=== PATIENT | female | born 1985 | race Caucasian/White ===

== ENCOUNTER 2019-04-06 20:06 | Emergency (ER) | payer MEDICARE, MEDICAID, SELFPAY ==
[2019-04-06 20:07] VITALS: BP 133/82; PULSE 119; RESP 16; TEMP 36.1; O2SAT 96; BMI 37.5
--- NOTE | 2019-04-06 20:20 | ED.VISSUMM ---
- ER Visit Summary Date of Service: 04/06/19 Chief Complaint: Dog bite History of Present Illness: The patient is a 34 F who presents with dog bite to both hands that occurred today. Patient states her pain is stabbing and throbbing. Patient admits to some tingling of her left arm. Patient denies any weakness. Patient states her last tetanus was within the last 10 years. Patient states her pain is worse with movement. Patient states her pain improves with ice. Patient states she also twisted her ankle today. Patient states she is able to walk on it. Physical Examination: Vital signs are stable. Patient is afebrile. Patient is in no acute distress. Skin is warm and dry. There is mall possible puncture wound on the palmar aspect of the right hand. There is no bleeding. There are no abrasions or puncture wounds on the left hand. Cranial nerves II through XII are intact. Strength is 5/5 bilateral knee upper and lower extremities. Musculoskeletal exam reveals tenderness over the lateral aspect of the left ankle. There is no edema or ecchymosis. There is no deformity noted. There is good range of motion. There is no laxity appreciated. Pedal pulses are equal bilaterally. Emergency Department Course and Treatment: Patient is allergic to penicillins and Augmentin. Patient was given a prescription for clindamycin. Patient was instructed to take Tylenol or ibuprofen as needed for pain. Patient was instructed to follow-up with her primary care physician in 7 to 10 days. Patient understood and was agreeable with the plan. All questions were answered. Disposition: Discharge home Impression: 1. Dog bite right hand 2. Left ankle sprain This note was generated with [employer] dictation software. It may contain incorrect words, spelling, and punctuation that were not noted in review of the chart prior to signing ED Disposition - Plan for ED Patient: Disposition: Home or Assisted Living Diagnosis: Dog bite of right hand, Left ankle sprain Instructions: Dog Bite, Sprain, Ankle, No X-Ray Prescriptions: Clindamycin HCl [Cleocin] 300 mg PO Q6H #28 cap Prescription Printed Referrals: Rush Dudley MD [Primary Care Provider] - 1-2 Weeks
--- NOTE | 2019-04-06 20:26 | ED.VISSUMM ---
- ER Visit Summary Date of Service: 04/06/19 Chief Complaint: Cough, nausea, vomiting, and diarrhea History of Present Illness: The patient is a 34 F who presents with cough, nausea, vomiting, diarrhea for the past 3 days. Patient states she is coughing up some brown sputum. Patient admits to subjective chills but denies any fevers. Patient does admit to a sore throat and rhinorrhea. Patient denies any abdominal pain. Patient states she has only had mild emesis. Patient denies any hematemesis or coffee-ground emesis. Patient denies any melena or hematochezia. Patient does admit to a headache. Patient denies any neck pain or back pain. Physical Examination: Vital signs are stable except for mild tachycardia. Patient is afebrile. Patient is in no acute distress. Oral mucosa is pink and moist. Neck is supple. Trachea is midline. There is no JVD noted. Heart was regular and tachycardic. Lungs are clear and equal bilaterally. Abdomen is soft. Bowel sounds are normal. There is no tenderness. Cranial nerves II through XII are intact. There are no focal motor or sensory deficits noted. Test Results: CBC and basic metabolic profile were obtained and were within normal limits. PA and lateral chest x-ray was obtained. There is no acute cardiopulmonary process. This was interpreted by the radiologist and myself. Emergency Department Course and Treatment: Patient was given IV fluids here. Patient was feeling better on reevaluation. Patient was instructed to follow-up with her primary care physician in 5 to 7 days. Patient and family understood and were agreeable with the plan. All questions were answered. Disposition: Discharge home Impression: Viral upper respiratory infection This note was generated with [employer] dictation software. It may contain incorrect words, spelling, and punctuation that were not noted in review of the chart prior to signing ED Disposition - Plan for ED Patient: Disposition: Home or Assisted Living Diagnosis: Viral upper respiratory infection Diagnosis: (Ruled Out): Dog bite of right hand, Left ankle sprain Instructions: URI, Viral, No Abx (Adult) Referrals: Rush Dudley MD [Primary Care Provider] - 1-2 Weeks
--- NOTE | 2019-04-06 20:49 | RAD_ITS ---
STUDY: X-RAY CHEST REASON FOR EXAM: Female, 34 years old. Nausea and cough TECHNIQUE: PA and 2 lateral views of the chest. COMPARISON: None. FINDINGS: The lungs are clear and expanded. There is no demonstrated pleural abnormality. Normal size heart. Normal mediastinum and sandar. Normal visualized pulmonary arteries. Normal visualized aortic arch and descending thoracic aorta. Normal visualized thoracic spine. Normal visualized ribs, clavicles, and shoulders. There is no demonstrated abnormality of the visualized soft tissue structures of the upper abdomen. RAD/Chest PA and Lateral IMPRESSION: Normal x-ray examination of the chest. Electronically Signed: Pedro Bejarano MD at 21:32 EDT , Service support ,
[2019-04-06] MEDS: 0.9% Normal Saline 1,000 ML 1000 ML IV (21:13)
[2019-04-06 21:23] LABS: Absolute Lymphocyte Count 2.98 X10^3/uL (0.83-4.51); Absolute Neutrophil Count 4.7 X10^3/uL (2.0-7.7); Basophil# 0.05 X10^3/uL; Basophil% 0.5 % (0-1); Eosinophil# 0.56 X10^3/uL; Eosinophils% 6.1 % (0-5); Hematocrit 41.1 % (37-47); Lymphocyte # 2.98 X10^3/ul (4.0); Lymphocyte % 32.3 % (19-41); Mean Corp Hgb Conc 31.6 g/dL (32-36); Mean Corpuscular Hgb 27.5 pg (27.0-32.0); Mean Corpuscular Volume 87.1 fL (81-99); Monocyte# 0.94 X10^3/uL; Monocyte% 10.2 % (0-10); NRBC Flagged by Analyzer 0 % (0-5); Neutrophil # 4.65 X10^3/uL (2.7-7.7); Neutrophil % 50.5 % (47-70); Platelet Count 389 K/mm3 (150-450); RBC Distribution Width CV 14.6 % (11.6-14.6); RBC Distribution Width SD 46.7 fl (35.1-43.9); Red Blood Count 4.72 M/mm3 (4.2-5.4); White Blood Count 9.2 K/mm3 (4.4-11.0)
[2019-04-06 21:35] LABS: Anion Gap 9 (5-15); BUN 15 mg/dL (7-18); BUN/Creat Ratio 20.6 RATIO (10-20); Calcium,Total 8.7 mg/dL (8.5-10.1); Chloride 100 mmol/L (98-107); Creatinine, Serum 0.73 mg/dL (0.55-1.02); EST Glomerular Filtration Rate 97 mL/min (>60); Est Glom Filt Rate - Afr Amer 117 mL/min (>60); Estimated Creatinine Clearance 96.79 ml/min; Glucose 99 mg/dL (74-106); Potassium 4.1 mmol/L (3.5-5.1); Sodium Level 140 mmol/L (136-145)
--- NOTE | 2019-04-06 22:09 | ED.RN ---
SPOKE TO GUARDIAN/AUNT CASTILLO MARINO, ANSWERED ALL QUESTIONS REGARDING ED VISIT INCLUDING TESTS, RESULTS AND TREATMENT. ALSO READ ALL OF DISCHARGE PACKET TO AUNT OVER PHONE PER REQUEST. AUNT STATES SHE DOES NOT TRUST HOME HEALTH STAFF TO FOLLOW DISCHARGE INSTRUCTIONS, NEEDS TO MAKE NOTES HERSELF SO SHE CAN CALL TO MAKE SURE INSTRUCTIONS ARE FOLLOWED. AUNT REQUESTS EMAIL OR FAX OF RECORDS. INSTRUCTED TO CONTACT MEDICAL RECORDS ON MONDAY. AUNT VOICED UNDERSTANDING.
[2019-04-06 22:13] VITALS: BP 128/78; PULSE 87; RESP 16; O2SAT 99
== END 2019-04-06 22:14 | disposition home or self-care (01) ==
PROVIDERS: Emergency Provider Emergency Medicine; Family Provider Family Medicine; PCP Family Medicine
DX: J06.9 Acute upper respiratory infection, unspecified (principal); R19.7 Diarrhea, unspecified; R11.2 Nausea with vomiting, unspecified; E66.9 Obesity, unspecified; F41.9 Anxiety disorder, unspecified; F98.8 Other specified behavioral and emotional disorders with onset usually occurring in childhood and adolescence; F32.9 Major depressive disorder, single episode, unspecified; Z79.899 Other long term (current) drug therapy; F17.200 Nicotine dependence, unspecified, uncomplicated
CPT/HCPCS: 71046; 80048; 85025; 96360; 99284; J7030; A4216

== ENCOUNTER 2019-04-13 20:29 | Emergency (ER) | payer MEDICARE, MEDICAID, SELFPAY ==
[2019-04-13 20:32] VITALS: BP 124/78; PULSE 78; RESP 16; TEMP 36.9; O2SAT 98; BMI 41.1
--- NOTE | 2019-04-13 21:05 | ED.DCSUM_ITS ---
- ER Visit Summary Date of Service: 04/13/19 Chief Complaint: Posterior rib cage pain after coughing History of Present Illness: The patient is a 34 F and depression. Said she was coughing a night around 830 had sudden onset of right posterior rib cage pain. She denies any chest pain. She denies shortness of breath. Hurts to take a deep breath on her right posterior ribs. No fall or other trauma. Recently diagnosed with bronchitis started on prednisone, inhaler and steroids by an urgent care. Physical Examination: Young female no distress. Vital signs stable afebrile. Pulse ox 90% on room air no hypoxia. HEENT exam unremarkable. Neck nontender. Lungs splinting on the right but clear to auscultation bilaterally. No rales, rhonchi or wheezing. Heart regular rhythm no murmur rate about 80. Chest wall nontender. Abdomen soft nontender obese. No peritoneal signs. Extremities moves all 4. Calves nontender without edema or cords. Neurologically she is awake and alert. Back spine is nontender right posterior lower lateral rib brazing machine tender palpation. There is no ecchymosis or bruising no subcu air crepitance. Test Results: Chest x-ray AP and lateral 2 views read by myself shows no acute abnormality read by myself. No pneumothorax. No infiltrate. No obvious rib fractures. We will go with a chest x-ray at the patient. Emergency Department Course and Treatment: Treated with p.o. Motrin and [place] x2 Treatment Plan: Repeat exam doing well at 20 1:21 PM. Ice to the area. Motrin for pain and also Tylenol. Disposition: Discharge Impression: Right posterior rib cage strain post coughing History of bronchitis This note was generated with [employer] dictation software. It may contain incorrect words, spelling, and punctuation that were not noted in review of the chart prior to signing ED Disposition - Plan for ED Patient: Referrals: Antony Phillips MD [Primary Care Provider] -
--- NOTE | 2019-04-13 21:08 | RAD_ITS ---
STUDY: X-RAY CHEST REASON FOR EXAM: Female, 34 years old. While coughing felt a pop in right ribs. TECHNIQUE: PA and lateral views of the chest. COMPARISON: April 06, 2019 FINDINGS: There are low lung volumes. Normal size heart. Normal mediastinum and sandra. Normal visualized pulmonary arteries. Normal visualized aortic arch and descending thoracic aorta. Normal visualized thoracic spine. There is a right eighth posterior rib fracture. There is no demonstrated abnormality of the visualized soft tissue structures of the upper abdomen. RAD/Chest PA and Lateral IMPRESSION: Right eighth posterior rib fracture. Electronically Signed: Pattie Cifuentes MD at 21:47 EDT Tel , Service support ,
[2019-04-13] MEDS: HYDROcodone Bitartrate/Apap 5/325 Tablet PO (21:21)
[2019-04-13] MEDS: Ibuprofen 600 MG Tablet PO (21:21)
--- NOTE | 2019-04-13 21:22 | ED.DEP ---
ED Disposition - Plan for ED Patient: Disposition: Home or Assisted Living Referrals: Antony Phillips MD [Primary Care Provider] - 1 Week if not improving Additional Instructions: Ice to the area. Tylenol and Motrin for pain. Use a pillow to brace the area. On your x-ray there was no collapsed lung. No obvious rib fracture. Most likely strain the muscles on your back and rib cage. This should progressively get better.
== END 2019-04-13 21:52 | disposition home or self-care (01) ==
LOC: ED 21:45
PROVIDERS: Emergency Provider Emergency Medicine; Family Provider Family Medicine; PCP Family Medicine
DX: S29.011A Strain of muscle and tendon of front wall of thorax, initial encounter (principal); X58.XXXA Exposure to other specified factors, initial encounter; Y93.9 Activity, unspecified; Y92.9 Unspecified place or not applicable; F32.9 Major depressive disorder, single episode, unspecified; J40 Bronchitis, not specified as acute or chronic; Z79.899 Other long term (current) drug therapy; Z72.0 Tobacco use
CPT/HCPCS: 71046; 99285

== ENCOUNTER 2019-08-14 10:01 | Observation (INO) | payer MEDICARE, MEDICAID, SELFPAY ==
[2019-08-14 10:03] VITALS: BP 155/73; PULSE 109; RESP 18; TEMP 36.9; O2SAT 95; BMI 38.2
[2019-08-14 10:26] VITALS: RESP 16
--- NOTE | 2019-08-14 10:38 | RAD_ITS ---
STUDY: X-RAY CHEST REASON FOR EXAM: Female, 34 years old. Left abdomen/rib pain radiating to left shoulder and chest TECHNIQUE: PA and lateral views of the chest. COMPARISON: Comparison is made with prior study April 05, 2019. FINDINGS: There now is evidence of a small right pleural effusion with right basilar infiltrate. Follow-up is recommended. There is no demonstrated pleural abnormality. Normal size heart. Normal mediastinum and sandra. Normal visualized pulmonary arteries. Normal visualized aortic arch and descending thoracic aorta. There are degenerative changes of the visualized thoracic spine. Normal visualized ribs, clavicles, and shoulders. There is no demonstrated abnormality of the visualized soft tissue structures of the upper abdomen. RAD/Chest PA and Lateral IMPRESSION: New right basilar infiltrate with small right pleural effusion. Electronically Signed: Bowen Pettit, at 11:07 EST , Service support ,
--- NOTE | 2019-08-14 10:52 | CT_ITS ---
STUDY: CTA CHEST REASON FOR EXAM: Female, 34 years old. CHEST PAIN, PLEURAL EFFUSION, COUGH. RADIATION DOSAGE (If Supplied By Facility): CTDIvol = ( 12.61 ) mGy, DLP = ( 463.38 ) mGycm TECHNIQUE: The examination was performed with the intravenous administration of 100CC ISOVUE 370. Post-processing of the angiographic images was performed, with multiplanar reformation and 3D reconstruction. Individualized dose optimization techniques were used for this CT. COMPARISON: None. FINDINGS: Normal enhancement of the main pulmonary artery and right and left pulmonary arteries. Normal enhancement of the bilateral peripheral pulmonary arteries. There is no demonstrated pulmonary embolism. Normal thoracic aorta and visualized great vessels. There is no demonstrated aortic dissection. Normal heart and pericardium. Normal mediastinum. Normal hilar regions. Normal visualized trachea and bronchi. The lungs are well expanded. Small right pleural effusion with the bibasilar atelectasis and/or infiltrates worse on the right side. Normal chest wall structures. There are degenerative changes of thoracic spine. Normal visualized upper abdomen. CT/CTA Chest W/WO Contrast IMPRESSION: Small right pleural effusion with bibasilar atelectasis and/or infiltrates worse on the right side. There is no evidence of pulmonary embolism. Electronically Signed: Bowen Pettit, at 12:56 EST , Service support ,
[2019-08-14 11:56] LABS: Absolute Lymphocyte Count 2.84 X10^3/uL (0.83-4.51); Absolute Neutrophil Count 5.7 X10^3/uL (2.0-7.7); Anion Gap 4 (5-15); BUN 11 mg/dL (7-18); BUN/Creat Ratio 14.6 RATIO (10-20); Basophil# 0.05 X10^3/uL; Basophil% 0.5 % (0-1); Calcium,Total 9.2 mg/dL (8.5-10.1); Chloride 105 mmol/L (98-107); Creatinine, Serum 0.75 mg/dL (0.55-1.02); EST Glomerular Filtration Rate 93 mL/min (>60); Eosinophil# 0.64 X10^3/uL; Eosinophils% 6.5 % (0-5); Est Glom Filt Rate - Afr Amer 112 mL/min (>60); Estimated Creatinine Clearance 98.01 ml/min; Glucose 96 mg/dL (74-106); Hematocrit 39.2 % (37-47); Hemoglobin 11.8 g/dL (12.0-15.0); Lymphocyte # 2.84 X10^3/ul (4.0); Lymphocyte % 28.7 % (19-41); Mean Corp Hgb Conc 30.1 g/dL (32-36); Mean Corpuscular Hgb 24.9 pg (27.0-32.0); Mean Corpuscular Volume 82.9 fL (81-99); Mean Platelet Vol. 8.7 fl (6.2-12.0); Monocyte# 0.65 X10^3/uL; Monocyte% 6.6 % (0-10); NRBC Flagged by Analyzer 0 % (0-5); Neutrophil # 5.67 X10^3/uL (2.7-7.7); Neutrophil % 57.1 % (47-70); Platelet Count 487 K/mm3 (150-450); Potassium 4.1 mmol/L (3.5-5.1); RBC Distribution Width CV 14.7 % (11.6-14.6); RBC Distribution Width SD 44.1 fl (35.1-43.9); Red Blood Count 4.73 M/mm3 (4.2-5.4); Sodium Level 138 mmol/L (136-145); White Blood Count 9.9 K/mm3 (4.4-11.0)
[2019-08-14 12:11] LABS: Lactic Acid 1.9 mmol/L (0.4-1.9)
[2019-08-14 12:54] VITALS: BP 144/68; PULSE 89; RESP 16; O2SAT 97
--- NOTE | 2019-08-14 13:08 | ED.DCSUM_ITS ---
- ER Visit Summary Date of Service: 08/14/19 Chief Complaint: [Chest pain/bilateral rib pain] History of Present Illness: The patient is a 34 F [presents the emergency department with chest discomfort that started yesterday. Patient's had a cough for several weeks. She was initially treated with Zithromax about 2 weeks ago. Patient continues to cough. Patient bringing up sputum at times. Patient states the pain is mostly with coughing and breathing. She denies recent travel or surgery. She denies any falls or injuries. Patient currently in a fdc] for history of mental illness and developmental disabilities. Physical Examination: [HEENT-PERRLA, EOMI. Cranial nerves II through XII grossly intact. TMs clear. Mucous membranes moist. No adenopathy. Cardiovascular-regular rate and rhythm without murmur or ectopy Lungs-diminished breath sounds right greater than left with rales in both bases. No significant tachypnea. No accessory muscle use or retractions. Abdomen-normoactive bowel sounds, soft, nontender, no rebound or rigidity, no peritoneal signs. Extremities-intact ?4, normal range of motion, normal pulses, atraumatic] Test Results: [CBC with differential obtained showed a white count of 9.9, hemoglobin 11.8, hematocrit 39, platelets 47. Chemistries unremarkable. Lactate was 1.9. Chest x-ray initially showed right lower lobe infiltrate with effusion. CT scan of the chest with IV contrast was ordered which showed b ibasilar atelectasis versus infiltrate greater on the right with a small effusion on the right.] Emergency Department Course and Treatment: [She was started on Levaquin 750 mg IV] Treatment Plan: [Admit] Disposition: [Admit] Impression: [Bilateral pneumonia Chest pain secondary to pneumonia] This note was generated with [employer] dictation software. It may contain incorrect words, spelling, and punctuation that were not noted in review of the chart prior to signing ED Disposition - Plan for ED Patient: Referrals: Antony Phillips MD [Primary Care Provider] -
--- NOTE | 2019-08-14 13:14 | HP.PCM_ITS ---
Problem List (1) Developmental disability Status: Chronic (2) Right lower lobe pneumonia Status: Acute (3) Right small pleural effusion Status: Acute History of Present Illness Date of Admission: 08/14/19 Chief Complaint: Cough for 3 weeks The patient is a 34 year old F with history of smoking since teenage and about a pack per day, mild developmental disability, lives in assisted was brought in to ER for cough for 3 weeks which is intermittently associated with clear sputum. She came to ER for left lower chest pain which is mainly pleuritic on coughing and breathing. She denies any fever or chills. She had Zithromax given as outpatient for bronchitis. In ED heart rate 109/min, respiratory rate 18 pulse ox 95% on room air. Afebrile. Chest x-ray and then CT chest was done. Chest CT scan independently reviewed. It is suggestive of right small pleural effusion, right lower infiltrate with bibasilar atelectasis, right more than left side. I do not appreciate air bronchograms rather than atelectatic bands. Past Medical History Past Medical History (Chronic Problems): Chronic Problems Developmental disability (Chronic) Allergies Penicillins Allergy (Verified 08/14/19 10:01) Unknown codeine Adverse Reaction (Verified 08/14/19 10:01) Other Home Medications: Ambulatory Orders Medication Instructions Recorded Lorazepam [Ativan] 0.5 mg PO BID 04/18/14 traZODone [Desyrel] 100 mg PO QHS 04/18/14 Divalproex Sodium [Divalproex 500 mg PO DAILY 04/06/19 Sodium ER] Ethinyl Estradiol/Drospirenone 1 tab PO DAILY 04/06/19 [Drospirenone-Ee 3-0.03 mg Tab] Lamotrigine 100 mg PO DAILY 04/06/19 Olanzapine 2.5 mg PO QHS 04/06/19 Albuterol Inhaler [Ventolin Hfa 2 puff INHALATION Q4H PRN PRN 04/13/19 (SP)] Doxycycline 100 mg PO BID 04/13/19 Multivitamin [Daily Multiple 1 ea PO DAILY 04/13/19 Vitamin] Prednisone 40 mg PO DAILY 04/13/19 Desvenlafaxine Succinate 25 mg PO DAILY 08/14/19 [Desvenlafaxine Succinate ER] Lamotrigine 50 mg PO DAILY 08/14/19 Multivitamin/Iron/Folic Acid 1 ea PO DAILY 08/14/19 [Certavite-Antioxidant Tablet] Venlafaxine HCl [Venlafaxine HCl 75 mg PO DAILY 08/14/19 ER] Smoking Status: Current every day smoker - *Family History Paternal History Items: Unknown - Patient is adopted Review of Systems Constitutional: Denies: Chills, Fever HEENT: Denies: Head Aches, Sinus Congestion, Sinus Drainage Cardiovascular: Reports: Chest Pain - Left lower chest pain, pleuritic in nature. Denies: Palpitations Respiratory: Reports: Cough, Shortness of breath upon exertion, Sputum production. Denies: Shortness of breath at rest Gastrointestinal: Reports: Abdominal Pain - Left upper quadrant abdominal pain. Denies: Nausea, Vomiting Genitourinary: Denies: Dysuria, Frequency, Incontinence, Retention, Urgency Musculoskeletal: Denies: Joint Pain, Joint Tenderness Skin: Denies: Rash, Wounds Neurological: Denies: Numbness, Tingling, Focal weakness Psychiatric: Denies: Anxiety, Depression, Homicidal Ideations, Suicidal Ideations Hematologic/ Lymphatic: Denies: Easy Bruising, Easy Bleeding VTE Information - Inpt Only VTE Present on Admission: No VTE Mechan Device Prophylaxis: None VTE Pharm Prophylaxis ordered?: No Reason prophylaxis not ordered:: Procedure Not Indicated Patient Problems: Active and Suspected Problems Right lower lobe pneumonia (Acute) Right small pleural effusion (Acute) - Physical Exam Vitals/I&O's: Vital Signs Temp Pulse Resp BP Pulse Ox 98.4 F 89 16 144/68 H 97 08/14/19 10:03 08/14/19 12:54 08/14/19 12:54 08/14/19 12:54 08/14/19 12:54 Oxygen Delivery Method Room Air Weight: 237 lb 3.478 oz Body Mass Index (BMI) 38.2 General: Alert, Oriented x3, Cooperative HEENT: Atraumatic, PERRLA, EOMI, Normocephalic Oral: No Gingival or Mucosal Lesions/ Ulcerations, Dry Mucosa Neck: Supple, No JVD, Negative Carotid Bruits Lungs: No rhonchi, No wheeze, No rales, Diminished - Air entry diminished in posterior half of right lower chest. Stony dullness present over right lower chest. Cardiovascular: Regular Rhythm, Normal S1, Normal S2, No murmurs, Tachycardic Abdomen: Bowel Sounds Present, Soft, Non Tender, Non-Distended Extremities: No edema, Capillary Refill Less than 3 Seconds Skin: No rashes, No breakdown Musculoskeletal: No Tenderness to Palpation of Joints or Extremities Lymphatic: No Cervical, Supraclavicular, or Inguinal Adenopathy Neurological: Cranial nerves II-XII grossly intact, Deep Tendon Reflexes 2+/4 and Symmetrical, Neuro grossly intact Psych/Mental Status: Normal Affect, Appropriate Laboratory Results 08/14/19 11:34: WBC 9.9, RBC 4.73, Hgb 11.8 L, Hct 39.2, MCV 82.9, MCH 24.9 L, MCHC 30.1 L, RDW Std Deviation 44.1 H, RDW Coeff of Efraín 14.7 H, Plt Count 487 H, MPV 8.7, Immature Gran % (Auto) 0.600, Neut % (Auto) 57.1, Lymph % (Auto) 28.7, [place] % (Auto) 6.6, Eos % (Auto) 6.5 H, Baso % (Auto) 0.5, Absolute Neuts (auto) 5.7, Absolute Lymphs (auto) 2.84, Nucleated RBC % 0 08/14/19 11:34: Sodium 138, Potassium 4.1, Chloride 105, Carbon Dioxide 29.0, Anion Gap 4 L, BUN 11, Creatinine 0.75, Estim Creat Clear Calc 98.01, Est GFR (MDRD) Af Amer 112, Est GFR (MDRD) Non-Af 93, BUN/Creatinine Ratio 14.6, Glucose 96, Calcium 9.2 08/14/19 11:34: Lactic Acid 1.9 Assessment/Plan All Active Problems Right lower lobe pneumonia (Acute) Right small pleural effusion (Acute) The patient is a 34 year old F with history of smoking since teenage and about a pack per day, mild developmental disability, lives in assisted was brought in to ER for cough for 3 weeks which is intermittently associated with clear sputum. She came to ER for left lower chest pain which is mainly pleuritic on coughing and breathing. In ED heart rate 109/min, respiratory rate 18 pulse ox 95% on room air. Afebrile. 1. Bilateral lower lobes, predominantly right lower lobe community-acquired pneumonia with bilateral small pleural effusion and bibasilar atelectasis: Patient is being admitted as MedSurg but physically in PCU. Started on Levaquin 750 mg IV in ED and will continue it. Chest CT scan independently reviewed. It is suggestive of right small pleural effusion, right lower infiltrate with bibasilar atelectasis, right more than left side. I do not appreciate air bronchograms rather than atelectatic bands. I think 5 days of total antibiotics will be sufficient as she had Zithromax for 5 days as an outpatient. Incentive spirometry and chest physiotherapy. Full pneumonia work-up including blood culture, urinary antigens, MRSA nasal screen and respiratory panel. 2. Mild developmental disability: Patient is on divalproex, lamotrigine and olanzapine as antipsychotic medications. There is no clear history of seizure as per the attendant present in the room in ED. Patient is ADL independent. Perhaps mild reading/school learning developmental delay. Twelve-lead EKG ordered as patient is on multiple psychiatric medications including desvenlafaxine, olanzapine, and trazodone which has potential for QTC prolongation with Levaquin. 3. Chronic smoker: Patient advised smoking cessation. Nicotine patch provided. DVT prophylaxis: Low risk. Early ambulation encouraged. Clinical Impression(s) from Imaging Studies Chest X-Ray 08/14/19 10:38 IMPRESSION: New right basilar infiltrate with small right pleural effusion. Chest CTA 08/14/19 10:52 IMPRESSION: Small right pleural effusion with bibasilar atelectasis and/or infiltrates worse on the right side. There is no evidence of pulmonary embolism. Laboratory Results 08/14/19 11:34: WBC 9.9, RBC 4.73, Hgb 11.8 L, Hct 39.2, MCV 82.9, MCH 24.9 L, MCHC 30.1 L, RDW Std Deviation 44.1 H, RDW Coeff of Efraín 14.7 H, Plt Count 487 H, MPV 8.7, Immature Gran % (Auto) 0.600, Neut % (Auto) 57.1, Lymph % (Auto) 28.7, [place] % (Auto) 6.6, Eos % (Auto) 6.5 H, Baso % (Auto) 0.5, Absolute Neuts (auto) 5.7, Absolute Lymphs (auto) 2.84, Nucleated RBC % 0 08/14/19 11:34: Sodium 138, Potassium 4.1, Chloride 105, Carbon Dioxide 29.0, A nion Gap 4 L, BUN 11, Creatinine 0.75, Estim Creat Clear Calc 98.01, Est GFR (MDRD) Af Amer 112, Est GFR (MDRD) Non-Af 93, BUN/Creatinine Ratio 14.6, Glucose 96, Calcium 9.2 08/14/19 11:34: Lactic Acid 1.9 Code Visit Inpatient E&M: 36056 Init Hosp L3
[2019-08-14] MEDS: levoFLOXacin IV 750 MG/150 ML BAG 100 MG IV (13:46)
[2019-08-14 14:27] VITALS: BMI 38.0
[2019-08-14 14:31] VITALS: BP 151/76; PULSE 81; RESP 16; TEMP 36.8; O2SAT 99
[2019-08-14 14:49] VITALS: BMI 38.0
[2019-08-14] MEDS: 0.9% Normal Saline 1,000 ML 100 ML IV (15:43)
[2019-08-14] MEDS: Benzonatate 100 MG Capsule PO ×2 (16:35→20:49)
[2019-08-14] MEDS: guaiFENesin 1,200 MG Tablet 1200 MG PO ×2 (16:35→20:48)
[2019-08-14 16:59] LABS: M R Staph aureus DNA By PCR Negative (Negative); Probe Check PASS; Specimen Processing Control PASS
[2019-08-14 20:42] VITALS: BP 154/71; PULSE 90; RESP 18; TEMP 37; O2SAT 96
[2019-08-14] MEDS: lamoTRIgine 100 MG Tablet PO (20:48)
[2019-08-14] MEDS: OLANZapine 2.5 MG Tablet PO (20:49)
[2019-08-14] MEDS: traZODone 50 MG Tablet PO (20:49)
[2019-08-14] MEDS: LORazepam 0.5 MG Tablet PO (20:49)
[2019-08-15] MEDS: Ibuprofen 600 MG Tablet PO (00:10)
[2019-08-15 02:29] VITALS: BP 136/71; PULSE 83; RESP 18; TEMP 36.9; O2SAT 94
[2019-08-15] MEDS: Benzonatate 100 MG Capsule PO ×2 (05:33→12:00)
[2019-08-15 06:34] LABS: Absolute Lymphocyte Count 3.27 X10^3/uL (0.83-4.51); Absolute Neutrophil Count 5.7 X10^3/uL (2.0-7.7); Basophil# 0.05 X10^3/uL; Basophil% 0.5 % (0-1); Eosinophil# 0.87 X10^3/uL; Eosinophils% 8.1 % (0-5); Hematocrit 37.3 % (37-47); Hemoglobin 11.3 g/dL (12.0-15.0); Lymphocyte # 3.27 X10^3/ul (4.0); Lymphocyte % 30.5 % (19-41); Mean Corp Hgb Conc 30.3 g/dL (32-36); Mean Corpuscular Hgb 24.8 pg (27.0-32.0); Mean Platelet Vol. 8.9 fl (6.2-12.0); Monocyte# 0.83 X10^3/uL; Monocyte% 7.7 % (0-10); NRBC Flagged by Analyzer 0 % (0-5); Neutrophil # 5.66 X10^3/uL (2.7-7.7); Neutrophil % 52.9 % (47-70); Platelet Count 423 K/mm3 (150-450); RBC Distribution Width CV 14.6 % (11.6-14.6); RBC Distribution Width SD 42.5 fl (35.1-43.9); Red Blood Count 4.55 M/mm3 (4.2-5.4); White Blood Count 10.7 K/mm3 (4.4-11.0)
[2019-08-15] MEDS: guaiFENesin 1,200 MG Tablet 1200 MG PO (08:38)
[2019-08-15] MEDS: lamoTRIgine 100 MG Tablet 50 MG PO (08:38)
[2019-08-15] MEDS: Multivitamins,Ther W-Minerals Tablet 1 TABLET PO (08:38)
[2019-08-15] MEDS: Divalproex (ER) 500 MG Tablet PO (08:38)
[2019-08-15 08:40] VITALS: BP 123/78; PULSE 79; RESP 12; TEMP 36.7; O2SAT 100
[2019-08-15] MEDS: LORazepam 0.5 MG Tablet PO (08:40)
[2019-08-15] MEDS: levoFLOXacin IV 750 MG/150 ML BAG 100 MG IV (09:27)
--- NOTE | 2019-08-15 11:15 | DCINST_ITS ---
- Discharge Diagnoses Current Active Problems: Current Active and Chronic Problems Developmental disability (Chronic) Right lower lobe pneumonia (Acute) Right small pleural effusion (Acute) You will use the following diet at home:: Regular Your food should be the consistency of: Regular Discharge Activity: May Not Drive Additional Activity Instructions:: Advised to hold venlafaxine, desvenlafaxine and trazodone while she is on Levaquin to avoid drug drug interaction for QT prolongation. Allergies/Adverse Reactions: Allergies Penicillins Allergy (Verified 08/14/19 10:01) Unknown codeine Adverse Reaction (Verified 08/14/19 10:01) Other Medications to take at Discharge Lorazepam [Ativan] 0.5 mg PO BID 04/18/14 Divalproex Sodium [Divalproex Sodium ER] 500 mg PO DAILY 04/06/19 Ethinyl Estradiol/Drospirenone [Drospirenone-Ee 3-0.03 mg Tab] 1 tab PO DAILY 04/06/19 Olanzapine 2.5 mg PO QHS 04/06/19 Albuterol Inhaler [Ventolin Hfa] 2 puff INHALATION Q4H PRN PRN 04/13/19 Ibuprofen [Motrin] 600 mg PO Q6H PRN PRN 08/14/19 Lamotrigine 50 mg PO DAILY@0808/14/19 Lamotrigine 100 mg PO DAILY@199908/14/19 Multivitamin/Iron/Folic Acid [Certavite-Antioxidant Tablet] 1 ea PO DAILY 08/14/19 Benzonatate [Tessalon Perle] 100 mg PO TID PRN PRN #30 cap 08/15/19 Desvenlafaxine Succinate [Desvenlafaxine Succinate ER] 25 mg PO DAILY #0 08/15/19 Guaifenesin [Mucinex] 1,200 mg PO BID #14 tab 08/15/19 Levofloxacin [Levaquin] 750 mg PO DAILY #3 tab 08/15/19 Venlafaxine HCl [Venlafaxine HCl ER] 75 mg PO DAILY@1999 #0 08/15/19 traZODone [Desyrel] 50 mg PO QHS tab 08/15/19 The following prescriptions were given: Levofloxacin [Levaquin] 750 mg PO DAILY #3 tab Transmission Status: Sent to [facility] Guaifenesin [Mucinex] 1,200 mg PO BID #14 tab Transmission Status: Sent to [facility] Benzonatate [Tessalon Perle] 100 mg PO TID PRN PRN #30 cap PRN Reason: cough Transmission Status: Sent to [facility] Primary Care Physician: Antony Phillips MD [Primary Care Provider] - Please follow up with your Primary Care Physician in: in 1-2 week Test Results: Test results from this visit will be discussed in further detail at your follow- up appointment, if applicable.
--- NOTE | 2019-08-15 11:16 | DS.PCM_ITS ---
Discharge Date and Diagnosis - Problem List Patient Problems: Active and Suspected Problems Right lower lobe pneumonia (Acute) Right small pleural effusion (Acute) Date of Admission: 08/14/19 Date of Discharge: 08/15/19 - Primary Discharge Diagnosis Active and Suspected Problems Right lower lobe pneumonia (Acute) Right small pleural effusion (Acute) - Secondary Discharge Diagnosis Chronic Problems Developmental disability (Chronic) Hospital Course and Treatment Summary of Care Provided: [] The patient is a 34 year old F with history of smoking since teenage and about a pack per day, mild developmental delay with learning problems, [facility] was admitted to PCU for cough for 3 weeks which is intermittently associated with clear sputum. She came to ER for left lower chest pain which is mainly pleuritic on coughing and breathing. In ED heart rate 109/min, respiratory rate 18 pulse ox 95% on room air. Afebrile. 1. Bilateral lower lobes, predominantly right lower lobe community-acquired pneumonia with bilateral small pleural effusion and bibasilar atelectasis: Patient is being admitted as MedSurg but physically in PCU. Started on Levaquin 750 mg IV in ED and continued. Chest CT scan independently reviewed. It is suggestive of right small pleural effusion, right lower infiltrate with bibasilar atelectasis, right more than left side. Incentive spirometry and chest physiotherapy. Pneumonia work-up including urinary antigens for Legionella and Streptococcus, respiratory panel are negative. Sputum culture Gram stain and blood culture pending. Patient wants to go home. Patient is given a prescription for 3 more days of Levaquin 750 mg once daily. Patient already had Zithromax for 5 days as an outpatient. 2. Mild developmental disability: Patient is on divalproex, lamotrigine and olanzapine as antipsychotic medications. There is no clear history of seizure as per the attendant present in the room in ED. Patient is ADL independent. Twelve-lead EKG ordered as patient is on multiple psychiatric medications including desvenlafaxine, olanzapine, and trazodone which has potential for QTC prolongation with Levaquin but patient refused. Advised to hold venlafaxine, desvenlafaxine and trazodone while on Levaquin for 3 more days. Trazodone de creased to 50 mg daily. 3. Chronic smoker: Patient advised smoking cessation. Nicotine patch provided. DVT prophylaxis: Low risk. Early ambulation encouraged. Discharge medication reconciliation done. Discharge follow-up instructions completed. Discharge process discussed with the patient and all questions were answered to patient's satisfaction. Continue chest physiotherapy and incentive spirometry Patient Problems: Active and Suspected Problems Right lower lobe pneumonia (Acute) Right small pleural effusion (Acute) Subjective: Patient is sitting in the chair. Much better. No shortness of breath or respiratory distress. No fever or chills. - Physical Exam Vitals/I&O's: Vital Signs Temp Pulse Resp BP Pulse Ox 98.1 F 79 12 123/78 H 100 08/15/19 08:40 08/15/19 08:40 08/15/19 08:40 08/15/19 08:40 08/15/19 08:40 Oxygen Delivery Method Room Air Weight: 235 lb 7.259 oz Body Mass Index (BMI) 38.0 Intake and Output for Last 24 Hours 08/13/19 08/14/19 08/15/19 23:59 23:59 23:59 Intake Total 150 / 150 1000 / 1000 Balance 150 / 150 1000 / 1000 General: Alert, Oriented x3, Cooperative HEENT: Atraumatic, PERRLA, EOMI, Normocephalic Neck: Supple, No JVD, Negative Carotid Bruits Lungs: No rhonchi, No wheeze, No rales, Diminished - Air entry diminished in bilateral lung bases, right more than left. Right is small pleural effusion. Cardiovascular: Regular rate, Regular Rhythm, Normal S1, Normal S2, No murmurs Abdomen: Bowel Sounds Present, Soft, Non Tender, Non-Distended Extremities: No edema, Capillary Refill Less than 3 Seconds Skin: No rashes, No breakdown Musculoskeletal: No Tenderness to Palpation of Joints or Extremities Neurological: Cranial nerves II-XII grossly intact Psych/Mental Status: Normal Affect, Appropriate, - - Mild developmental delay with learning problem in his school. Microbiology Past 72 Hours 08/14/19 15:10 Mucosa - Nasopharyngeal Respiratory Panel (PCR) - Final 08/14/19 15:20 Urine, Random Streptococcus pneumoniae Antigen (M - Final 08/14/19 15:20 Urine, Clean Catch Legionella Antigen - Final Laboratory Results 08/14/19 11:34: WBC 9.9, RBC 4.73, Hgb 11.8 L, Hct 39.2, MCV 82.9, MCH 24.9 L, MCHC 30.1 L, RDW Std Deviation 44.1 H, RDW Coeff of Efraín 14.7 H, Plt Count 487 H, MPV 8.7, Immature Gran % (Auto) 0.600, Neut % (Auto) 57.1, Lymph % (Auto) 28.7, [place] % (Auto) 6.6, Eos % (Auto) 6.5 H, Baso % (Auto) 0.5, Absolute Neuts (auto) 5.7, Absolute Lymphs (auto) 2.84, Nucleated RBC % 0 08/14/19 11:34: Sodium 138, Potassium 4.1, Chloride 105, Carbon Dioxide 29.0, Anion Gap 4 L, BUN 11, Creatinine 0.75, Estim Creat Clear Calc 98.01, Est GFR (MDRD) Af Amer 112, Est GFR (MDRD) Non-Af 93, BUN/Creatinine Ratio 14.6, Glucose 96, Calcium 9.2 08/14/19 11:34: Lactic Acid 1.9 08/14/19 15:20: MRSA (PCR) Negative 08/15/19 06:15: WBC 10.7, RBC 4.55, Hgb 11.3 L, Hct 37.3, MCV 82.0, MCH 24.8 L, MCHC 30.3 L, RDW Std Deviation 42.5, RDW Coeff of Efraín 14.6, Plt Count 423, MPV 8.9, Immature Gran % (Auto) 0.300, Neut % (Auto) 52.9, Lymph % (Auto) 30.5, [place] % (Auto) 7.7, Eos % (Auto) 8.1 H, Baso % (Auto) 0.5, Absolute Neuts (auto) 5.7, Absolute Lymphs (auto) 3.27, Nucleated RBC % 0 Current Medications Acetaminophen (Tylenol) 650 mg PO Q6H PRN PRN PRN Reason: Pain Score 1-3/Temp > 100.7 F Al Hydroxide/Mg Hydroxide (Mylanta Ii) 30 ml PO Q6H PRN PRN PRN Reason: Gastric Burning Albuterol/Ipratropium (Duoneb) 3 ml INHALATION Q4H.RT PRN PRN Reason: SHORTNESS OF BREATH Benzonatate (Tessalon Perle) 100 mg PO TID DERRICK Last Admin: 08/15/19 05:33 Dose: 100 mg Documented by: Divalproex Sodium (Depakote Er) 500 mg PO DAILY [facility] Last Admin: 08/15/19 08:38 Dose: 500 mg Documented by: Glucagon () 1 mg IM .X1 PRN PRN Reason: Hypoglycemia Guaifenesin (Mucinex) 1,200 mg PO BID [facility] Last Admin: 08/15/19 08:38 Dose: 1,200 mg Documented by: Levofloxacin (Levaquin Iv) 750 mg in 150 mls @ 100 mls/hr IV Q24 [facility] Stop: 08/19/19 10:01 Last Admin: 08/15/19 09:27 Dose: 100 mls/hr Documented by: Dextrose (Dextrose 10%-Water) 250 mls @ 999 mls/hr IV .Q16M PRN; Protocol PRN Reason: HYPOGLYCEMIA Ibuprofen (Motrin) 600 mg PO Q6H PRN PRN PRN Reason: Pain Score 1-10/10 Last Admin: 08/15/19 00:10 Dose: 600 mg Documented by: Lamotrigine (Lamictal) 50 mg PO DAILY@0800 [facility] Last Admin: 08/15/19 08:38 Dose: 50 mg Documented by: Lamotrigine (Lamictal) 100 mg PO DAILY@1999 [facility] Last Admin: 08/14/19 20:48 Dose: 100 mg Documented by: Lorazepam (Ativan) 0.5 mg PO BID [facility] Last Admin: 08/15/19 08:40 Dose: 0.5 mg Documented by: Morphine Sulfate () 2 mg IV Q3H PRN PRN PRN Reason: Pain Score 6-10/10 Multivitamins/Minerals (Multivitamin With Minerals) 1 tablet PO DAILY@0800 [facility] Last Admin: 08/15/19 08:38 Dose: 1 tablet Documented by: Olanzapine (Zyprexa) 2.5 mg PO QHS [facility] Last Admin: 08/14/19 20:49 Dose: 2.5 mg Documented by: Ondansetron HCl (Zofran) 4 mg IV Q8H PRN PRN PRN Reason: NAUSEA/VOMITING Prochlorperazine Edisylate (Compazine Iv) 5 mg IV Q4H PRN PRN PRN Reason: Breakthrough nausea/vomiting Senna/Docusate Sodium (Senokot-S, Joycelyn-Colace) 2 tablet PO BID PRN PRN PRN Reason: Constipation Sodium Chloride () 10 - 40 ml IV UD PRN PRN Reason: SALINE FLUSH Trazodone HCl (Desyrel) 50 mg PO QHS [facility] Last Admin: 08/14/19 20:49 Dose: 50 mg Documented by: Discharge Activity: May Not Drive Additional Activity Instructions:: Advised to hold venlafaxine, desvenlafaxine and trazodone while she is on Levaquin to avoid drug drug interaction for QT prolongation. Home Medications: Medications to take at Discharge Lorazepam [Ativan] 0.5 mg PO BID 04/18/14 Divalproex Sodium [Divalproex Sodium ER] 500 mg PO DAILY 04/06/19 Ethinyl Estradiol/Drospirenone [Drospirenone-Ee 3-0.03 mg Tab] 1 tab PO DAILY 04/06/19 Olanzapine 2.5 mg PO QHS 04/06/19 Albuterol Inhaler [Ventolin Hfa] 2 puff INHALATION Q4H PRN PRN 04/13/19 Ibuprofen [Motrin] 600 mg PO Q6H PRN PRN 08/14/19 Lamotrigine 50 mg PO DAILY@0808/14/19 Lamotrigine 100 mg PO DAILY@199908/14/19 Multivitamin/Iron/Folic Acid [Certavite-Antioxidant Tablet] 1 ea PO DAILY 08/14/19 Benzonatate [Tessalon Perle] 100 mg PO TID PRN PRN #30 cap 08/15/19 Desvenlafaxine Succinate [Desvenlafaxine Succinate ER] 25 mg PO DAILY #0 08/15/19 Guaifenesin [Mucinex] 1,200 mg PO BID #14 tab 08/15/19 Levofloxacin [Levaquin] 750 mg PO DAILY #3 tab 08/15/19 Venlafaxine HCl [Venlafaxine HCl ER] 75 mg PO DAILY@1999 #0 08/15/19 traZODone [Desyrel] 50 mg PO QHS tab 08/15/19 Following Prescrptions Were Given to Patient: Levofloxacin [Levaquin] 750 mg PO DAILY #3 tab Transmission Status: Sent to [facility] Guaifenesin [Mucinex] 1,200 mg PO BID #14 tab Transmission Status: Sent to [facility] Benzonatate [Tessalon Perle] 100 mg PO TID PRN PRN #30 cap PRN Reason: cough Transmission Status: Sent to [facility] Primary Care Physician: Antony Phillips MD [Primary Care Provider] - Please follow up with your Primary Care Physician in: in 1-2 week Medical Necessity - Tobacco Use Smoking Status: Current every day smoker Meaningful Use Info Meaningful Use Diagnoses (Choose all that apply): None applicable Code Visit OBSV E&M: 00634 Observation care discharge
--- NOTE | 2019-08-15 11:34 | CASEMGMT ---
Patient is from a intermediate and she is ready for discharge. RN said she is going to call the person listed on the demographics sheet to discuss discharge meds and to see who will pick patient up. Patient has a legal guardian, but there is nothing on file at [facility] nor is the guardian listed on patient's demographics sheet. Marylin MEREDITH
--- NOTE | 2019-08-15 11:43 | CASEMGMT ---
RN spoke with patient's case preparer and liner and she will arrange transport for patient to return to the [facility]. Marylin MEREDITH
== END 2019-08-15 11:16 | disposition home or self-care (01) ==
LOC: ED 11:29 → PCU 13:27
PROVIDERS: Admitting Provider Internal Medicine; Emergency Provider Emergency Medicine; PCP Family Medicine; Visit Provider Internal Medicine
DX: J18.9 Pneumonia, unspecified organism (principal); J90 Pleural effusion, not elsewhere classified; Z79.899 Other long term (current) drug therapy; F81.9 Developmental disorder of scholastic skills, unspecified; F17.210 Nicotine dependence, cigarettes, uncomplicated
CPT/HCPCS: 36415; 71046; 71275; 80048; 83605; 85025; 87040; 87070; 87205; 87449; 87633; 87641; 94667; 96361; 96365; 96366; 99218; 99285; 99406; J7030; J7050; Q9967; A4216; G0378

== ENCOUNTER 2019-10-01 16:44 | Emergency (ER) | payer MEDICARE, MEDICAID, SELFPAY ==
[2019-10-01 16:45] VITALS: BP 186/79; PULSE 100; RESP 18; TEMP 36.6; O2SAT 99; BMI 38.6
--- NOTE | 2019-10-01 17:08 | ED.VIS.URI ---
History of Present Illness Chief Complaint: Cold Sx Informant: Patient, - - social work case manager Onset: Days - 3 Context: Gradual Onset Timing: Continuous Quality: prod cough Current Severity: Moderate Maximum Severity: Moderate Worsened by: - - nothing Relieved by: - - no effect after taking an unk cold medication 2d ago Associated Symptoms: Nasal Congestion, Shortness of Breath - mild, wheezing, Productive Cough, - - no fevers. Negative for: Headache, Sinus Pressure, Myalgias, Nausea, Vomiting, Diarrhea, Chest Pain, Hemoptysis Narrative: Patient has brought her evaluation by her promotional marketing analyst. She has not traveled out of the area for as long as she can remember and has had no contact with a Covid-19 patient that she knows of. - Past Medical History (1) Developmental disability Status: Chronic Past Medical History - Allergies and Home Meds Allergies/Adverse Reactions: Allergies Penicillins Allergy (Verified 10/01/19 16:47) Unknown codeine Adverse Reaction (Verified 10/01/19 16:47) Other Primary Care Physician: NOT,DEFINED [Primary Care Provider] - Lives: Alone Smoking Status: Current every day smoker - Family History Paternal Family History: Reports: Unknown - Patient is adopted Review of Systems General: Denies: Chills, Fever, Sweats Eyes: Denies: Visual changes - bilaterally, Diplopia ENT: Denies: Rhinorrhea, Sore throat Cardiovascular: Denies: Chest pain, Palpitations Respiratory: Reports: Dyspnea - mild wheezing, Cough, Sputum - yellow. Denies: Dyspnea on exertion Gastrointestinal: Denies: Abdominal pain, Nausea, Vomiting, Diarrhea, Melena, Hematochezia Genitourinary: Denies: Dysuria, Hematuria, Frequency Musculoskeletal: Denies: Myalgias, Back pain, Swelling, Extremity Pain Skin: Denies: Rash, Wounds Neurological: Denies: Headache, Weakness, Numbness Physical Exam Vital Signs/Narrative: Vital Signs Temp Pulse Resp BP Pulse Ox 10/01/19 16:45 98 F 100 18 186/79 H 99 Inital Vital Signs reviewed: Yes General: Well nourished, Well developed, Obese, - - Well-appearing, NAD Head: Normocephalic, Atraumatic. Negative for: Sinus Tenderness Eyes: Perrl, EOMI Ears: Normal external canal, TM's clear Nose: Normal Inspection, Congestion. Negative for: Purulent Drainage Mouth/Throat: Normal Inspection, No Posterior Erythema Neck: Supple, Nontender Cardiovascular: Regular rate, Regular rhythm, No murmurs Respiratory: No distress, CTA bilaterally, Chest nontender Abdomen: Soft, Nontender, Nondistended, Normal bowel sounds Back: Nontender, Normal Inspection Extremities: Nontender, No edema. Negative for: Calf Tenderness Skin: Normal color, No rash, No Trauma Neurological: Alert, Oriented x3, Cranial nerves II-XII grossly intact, Normal Strength, Normal Sensation, Normal Gait Psychological: Normal affect, Normal Mood Diagnostic/Tx/Re-eval - Medical Decision Making Patient is in no distress, is barely wheezing and she is hypertensive. Patient does not have COVID-19 exposure and is not critically ill or clinically septic, vital signs are stable without hypoxia, and at this time does not meet current [facility] requirements for testing for COVID-19, nor influenza. Supportive care advised, reassured, patient already has an albuterol inhaler at home, discussed appropriate use. ED Disposition - Plan for ED Patient: Disposition: Home or Assisted Living Diagnosis: Acute wheezy bronchitis, Episode of hypertension Instructions: BRONCHITIS with Wheezing (Adult) Referrals: NOT,DEFINED [Primary Care Provider] - Doctor,Your [STAFF PHYSICIAN] - 10-14 Days if not better Additional Instructions: Use your albuterol inhaler as prescribed for any wheezing, which is usually 1-2 puffs every 4 hours as needed inhaled. May also take [id number] cough medicines. Follow-up with your doctor to have your blood pressure rechecked as it was high.
[2019-10-01 17:23] VITALS: BP 168/74; PULSE 93; RESP 16; O2SAT 97
== END 2019-10-01 17:25 | disposition home or self-care (01) ==
LOC: ED 17:16
PROVIDERS: Emergency Provider Emergency Medicine
DX: J20.9 Acute bronchitis, unspecified (principal); I10 Essential (primary) hypertension; E66.9 Obesity, unspecified; F89 Unspecified disorder of psychological development; Z79.899 Other long term (current) drug therapy; F17.200 Nicotine dependence, unspecified, uncomplicated
CPT/HCPCS: 99282

== ENCOUNTER 2020-02-12 10:18 | Emergency (ER) | payer MEDICARE, MEDICAID, SELFPAY ==
[2020-02-12 10:20] VITALS: BP 157/84; PULSE 106; RESP 16; TEMP 36.1; O2SAT 97; BMI 39.9
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
--- NOTE | 2020-02-12 10:52 | ED.RN ---
spoke with pt's guardian and aunt prior to arrival. feels that isint safe to return her to [facility] and want to see her pink slipped to get evaluated at a mental health facility. if cant get her in there want to possibly admit to [facility] or in the hospital for better care d/t her past dr. bryant spoke with on phone and ed sw in to talk and see pt.
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
--- NOTE | 2020-02-12 11:29 | EKG12_ITS ---
Test Reason : SUICIDE Blood Pressure : / mmHG Vent. Rate : 079 BPM Atrial Rate : 079 BPM P-R Int : 150 ms QRS Dur : 090 ms QT Int : 392 ms P-R-T Axes : 051 021 013 degrees QTc Int : 449 ms Normal sinus rhythm Normal ECG Confirmed by JUSTEN ALDRICH, JOSIE ([id number]), editor continuity and script DANIS SCHULZ ([id number]) on 02/18/2020 8:48:18 AM Referred By: SARAY Confirmed By:JOSIE CAMPUZANO MD
--- NOTE | 2020-02-12 11:30 | CM.ED ---
SOCIAL WORK Call to [facility] to discuss referral. [facility] reports will review referral once received and get back to this worker. Awaiting medical clearance at this time. Shana Silva, CARTOONIST SPECIAL EFFECTS, COMPUTER APPLICATIONS INSTRUCTOR
--- NOTE | 2020-02-12 11:46 | NURSING ---
CALLED DR MUNOZ FOR DR JOHNSON [phone]
[2020-02-12] MEDS: LORazepam 1 MG Tablet PO (11:54)
--- NOTE | 2020-02-12 12:00 | CM.ED ---
SOCIAL WORK This worker received call from patient's family event management consultant, Boston Mason regarding questions for criteria for psych hospitalization. Linen Clerk Isabella reports received call from patient's guardian, Miri Bowen who is adamant patient is needing inpatient psych hospitalization and was concerned that patient's alf staff was going against guardian. Informed this worker has completed assessment and is working with guardian and patient.
--- NOTE | 2020-02-12 12:03 | ED.RN ---
PT ADAMANTLY REFUSING TO LET THIS RN OR ANY OTHER STAFF OBTAIN BLOOD SAMPLE, EKG, ETC. PT SCREAMING, RAISING FISTS, ATTEMPTING TO RUN OUT OF ROOM. ALL DEESCALATION ATTEMPTS FAILED, AWARE.
[2020-02-12 12:06] LABS: Mucous, Urine 0 SEEN /hpf (<or=2+); Red Blood Cells-Urine 0 SEEN /hpf (0-5); White Blood Cells 0 SEEN /hpf (0-5)
[2020-02-12 12:11] LABS: Color, Urine Yellow (Yellow); Glucose, Dipstick Normal (Normal); Ketone-Dipstick 5 mg/dl (Negative); Leukocyte Esterase-Dipstick Negative /ul (Negative); Nitrite-Dipstick Negative (Negative); Occult Blood-Urine Negative /ul (Negative); Protein-Dipstick Negative (Negative); Specific Gravity, Urine 1.015 (1.002-1.030); Urine Bilirubin Dipstick Negative (Negative); Urine Clarity Clear (Clear); Urine Urobilinogen Normal (Normal)
[2020-02-12 12:20] LABS: Squamous Epithelial Cells - UA 5-10 SEEN /hpf (5-10)
--- NOTE | 2020-02-12 12:20 | NURSING ---
LEFT MESSAGE WITH DR ALEXANDER BOWEN'S OFFICE.
[2020-02-12 12:22] LABS: Amphetamine Urine VISTA NEGATIVE (<1000 ng/mL); Bacteria 1+ /hpf (None Seen); Barbiturate Urine VISTA NEGATIVE (< 200 ng/mL); Benzodiazepine Urine VISTA NEGATIVE (< 200 ng/mL); Cocaine Urine VISTA NEGATIVE (< 300 ng/mL); Ecstacy Urine VISTA NEGATIVE (< 500 ng/mL); Methadone Urine VISTA NEGATIVE (< 300 ng/mL); PCP Urine VISTA NEGATIVE (< 25 ng/mL); THC Urine VISTA NEGATIVE (< 50 ng/mL); Vista UDS pH Range 7
[2020-02-12 12:23] LABS: Internal QC Validated? YES +Cl - CLEAR BKGD; Pregnancy, Urine Negative Negative
--- NOTE | 2020-02-12 12:50 | NURSING ---
DR ALEXANDER JOINER FOR ER DOC
--- NOTE | 2020-02-12 14:00 | CM.ED ---
SOCIAL WORK Referral faxed to [facility]. Awaiting review at this time. Shana Silva, NURSE COORDINATOR, PAPER GOODS MACHINE SET UP OPERATOR
[2020-02-12 14:04] LABS: Absolute Lymphocyte Count 3.46 X10^3/uL (0.83-4.51); Absolute Neutrophil Count 7.9 X10^3/uL (2.0-7.7); Basophil# 0.04 X10^3/uL; Basophil% 0.3 % (0-1); Eosinophil# 0.45 X10^3/uL; Eosinophils% 3.6 % (0-5); Hematocrit 40.5 % (37-47); Hemoglobin 12.6 g/dL (12.0-15.0); Lymphocyte # 3.46 X10^3/ul (4.0); Lymphocyte % 27.4 % (19-41); Mean Corp Hgb Conc 31.1 g/dL (32-36); Mean Corpuscular Hgb 27.5 pg (27.0-32.0); Mean Corpuscular Volume 88.2 fL (81-99); Mean Platelet Vol. 8.7 fl (6.2-12.0); Monocyte# 0.64 X10^3/uL; Monocyte% 5.1 % (0-10); NRBC Flagged by Analyzer 0 % (0-5); Neutrophil # 7.94 X10^3/uL (2.7-7.7); Platelet Count 420 K/mm3 (150-450); RBC Distribution Width CV 14.6 % (11.6-14.6); RBC Distribution Width SD 46.5 fl (35.1-43.9); Red Blood Count 4.59 M/mm3 (4.2-5.4); White Blood Count 12.6 K/mm3 (4.4-11.0)
--- NOTE | 2020-02-12 14:19 | CM.ED ---
SOCIAL WORK Received call from [facility]. Patient has been accepted. [facility] provided with legal guardian's contact information to get consent forms completed. mend worker to call this worker back with accepting information. Plan: [facility] Shana Silva MSW, [employer]
[2020-02-12 14:20] LABS: ALB/GLOB Ratio 0.7 RATIO (0.9-2.4); AST(SGOT) 14 U/L (15-37); Alanine Aminotransfer ALT/SGPT 23 U/L (13-56); Albumin, Serum 3.2 g/dL (3.2-5.0); Alkaline Phosphatase 103 U/L (45-117); Anion Gap 3 (5-15); BUN 8 mg/dL (7-18); Calcium,Total 9.4 mg/dL (8.5-10.1); Chloride 103 mmol/L (98-107); Creatinine, Serum 0.72 mg/dL (0.55-1.02); EST Glomerular Filtration Rate 97 mL/min (>60); Est Glom Filt Rate - Afr Amer 117 mL/min (>60); Estimated Creatinine Clearance 98.13 ml/min; Globulin 4.6 g/dL (2.2-4.2); Glucose 93 mg/dL (74-106); Protein, Total 7.8 g/dL (6.4-8.2); Sodium Level 136 mmol/L (136-145)
[2020-02-12 14:59] VITALS: BP 135/76; PULSE 81; RESP 16; O2SAT 98
[2020-02-12 15:29] LABS: Internal QC Validated? YES +Cl - CLEAR BKGD; Pregnancy, Serum, hCG Quali. NEGATIVE Negative
--- NOTE | 2020-02-12 17:05 | CM.ED ---
SOCIAL WORK Call to [facility] to check on status. Updated all consents received from patient's guardian. Patient accepted by Dr. Ching to the ITU. Nurse to call report to . Site Damage Prevention Technician to set up transport. This worker along with nursing to update patient. Shana Silva, NUT AND BOLT ASSEMBLER, SUPERVISOR WORD PROCESSING
--- NOTE | 2020-02-12 17:44 | NURSING ---
1740 CALLED PHYSICANS,. ETA IS 90 MIN
--- NOTE | 2020-02-12 17:50 | CM.ED ---
SOCIAL WORK This worker along with nurse, Alisha updated patient and staff member from residential on patient's acceptance to [facility]. Patient upset and requested to speak with OMane. Officer at bedside with patient. Shana Silva, ASSISTANT TERMINAL MANAGER, ROLL FINISHER
[2020-02-12 18:00] VITALS: BP 128/78; PULSE 84; RESP 16; O2SAT 98
[2020-02-12 18:21] VITALS: BP 128/74; PULSE 84; RESP 16; O2SAT 98
--- NOTE | 2020-02-12 19:44 | ED.RN ---
CALLED TO CHECK STATUS OF TRANSPORT SQUAD, 45 MINUTE ETA GIVEN OF 1944
[2020-02-12] MEDS: OLANZapine 2.5 MG Tablet PO (20:34)
[2020-02-12] MEDS: Divalproex (ER) 500 MG Tablet PO (20:34)
[2020-02-12] MEDS: traZODone 100 MG Tablet PO (20:34)
[2020-02-12] MEDS: LORazepam 0.5 MG Tablet PO (20:34)
[2020-02-12] MEDS: lamoTRIgine 100 MG Tablet PO (20:34)
[2020-02-12 20:36] VITALS: BP 136/78; PULSE 74; RESP 16; O2SAT 100
--- NOTE | 2020-02-12 20:38 | ED.RN ---
TRANSPORT UPDATE, STILL ABOUT TWENTY MINUTES OUT
== END 2020-02-12 21:32 ==
PROVIDERS: Emergency Provider Emergency Medicine; PCP Family Medicine
DX: F94.2 Disinhibited attachment disorder of childhood (principal); R45.850 Homicidal ideations; F98.8 Other specified behavioral and emotional disorders with onset usually occurring in childhood and adolescence; F32.9 Major depressive disorder, single episode, unspecified; F41.9 Anxiety disorder, unspecified; Z79.899 Other long term (current) drug therapy; F17.200 Nicotine dependence, unspecified, uncomplicated
CPT/HCPCS: 36415; 80053; 80307; 80320; 81001; 81025; 84703; 85025; 93005; 99284; G0480

== ENCOUNTER → 2021-03-04 10:42 | Outpatient (CLI) | payer MEDICARE, MEDICAID, SELFPAY ==
[2021-03-02 14:00] VITALS: BMI 39.3
[2021-03-04 11:01] LABS: Absolute Lymphocyte Count 3.87 X10^3/uL (0.83-4.51); Absolute Neutrophil Count 5.7 X10^3/uL (2.0-7.7); Basophil# 0.03 X10^3/uL; Basophil% 0.3 % (0-1); Eosinophil# 0.28 X10^3/uL; Eosinophils% 2.7 % (0-5); Hematocrit 41.3 % (37-47); Hemoglobin 13.1 g/dL (12.0-15.0); Lymphocyte # 3.87 X10^3/ul (0.83-4.51); Lymphocyte % 36.8 % (19-41); Mean Corp Hgb Conc 31.7 g/dL (32-36); Mean Corpuscular Hgb 26.9 pg (27.0-32.0); Mean Corpuscular Volume 84.8 fL (81-99); Monocyte# 0.59 X10^3/uL; Monocyte% 5.6 % (0-10); NRBC Flagged by Analyzer 0 % (0-5); Neutrophil # 5.71 X10^3/uL (2.7-7.7); Neutrophil % 54.1 % (47-70); Platelet Count 399 K/mm3 (150-450); RBC Distribution Width CV 14.3 % (11.6-14.6); RBC Distribution Width SD 44.3 fl (35.1-43.9); Red Blood Count 4.87 M/mm3 (4.2-5.4); White Blood Count 10.5 K/mm3 (4.4-11.0)
[2021-03-04 11:19] LABS: ALB/GLOB Ratio 0.8 RATIO (0.9-2.4); AST(SGOT) 9 U/L (15-37); Alanine Aminotransfer ALT/SGPT 21 U/L (13-56); Albumin, Serum 3.4 g/dL (3.2-5.0); Alkaline Phosphatase 124 U/L (45-117); Anion Gap 4 (5-15); BUN 15 mg/dL (7-18); BUN/Creat Ratio 23.3 RATIO (10-20); Calcium,Total 8.9 mg/dL (8.5-10.1); Chloride 108 mmol/L (98-107); Cholesterol 178 mg/dL (200); Creatinine, Serum 0.64 mg/dL (0.55-1.02); EST Glomerular Filtration Rate 110 mL/min (>60); Est Glom Filt Rate - Afr Amer 133 mL/min (>60); Globulin 4.4 g/dL (2.2-4.2); Glucose 89 mg/dL (74-106); High Density Lipoprotein 51 mg/dL; Potassium 4.2 mmol/L (3.5-5.1); Protein, Total 7.8 g/dL (6.4-8.2); Sodium Level 138 mmol/L (136-145); Triglycerides 96 mg/dL; Very Low Density Lipoprotein 19 mg/dL (5-40)
[2021-03-04 11:25] LABS: Vitamin D,25 Hydroxy 59.4 ng/mL
== END ==
PROVIDERS: PCP Internal Medicine; Referring Provider Internal Medicine; Visit Provider Internal Medicine
DX: J45.909 Unspecified asthma, uncomplicated (principal); E66.9 Obesity, unspecified; E55.9 Vitamin D deficiency, unspecified
CPT/HCPCS: 36415; 80053; 80061; 82306; 85025

== ENCOUNTER 2021-10-03 10:41 | Emergency (ER) | payer MEDICARE, MEDICAID, SELFPAY ==
[2021-10-03 10:42] VITALS: BP 129/49; PULSE 103; RESP 16; TEMP 36.2; O2SAT 99; BMI 38.9
--- NOTE | 2021-10-03 11:00 | ED.RN ---
Darcy presents to ED with ring needing removed, complains of pain and swelling to the finger. She denies any other complaints.
--- NOTE | 2021-10-03 11:06 | ED.RN ---
Patient has vague statement of having suicidal thoughts in the past. Vague on these thoughts and gives no plan just states she gets frustrated with her care givers. No manager social responsibility at the hospital, Crisis to be called to speak with patient.
--- NOTE | 2021-10-03 11:09 | EDS_ITS ---
HPI History of Present Illness HPI Narrative: Patient presents with pain and swelling to her left ring finger that has been getting worse over the past 2 days. Patient states her rings are tight and causing increased swelling to the proximal phalanx of her left ring finger. Patient describes her pain is aching. Patient states nothing makes it worse and nothing makes it better. Patient denies any paresthesias or weakness. Patient denies any trauma or injury. Chief Complaint: Other, Pain/Inj Informant: patient Onset/Context/Timing Onset: Days (2) Context: Gradual Onset Timing: Continuous Quality of Pain: Aching Worsened by: Nothing Relieved by: Nothing Associated Symptoms Associated Symptoms: Negative for Parasthesia, Weakness and Loss of Funtion [facility] Medical History Asthma GERD (gastroesophageal reflux disease) History of psychiatric care Intermittent explosive disorder Low back pain Preventative health care Seasonal allergies Suicide attempt Tobacco abuse Vitamin D deficiency Home Medications ibuprofen 600 mg PO Q6H PRN PRN 08/14/19 [History Last Taken 08/14/19] trazodone 100 mg PO QHS 02/12/20 [History Last Taken Unknown] acetaminophen 325 mg tablet 325 mg PO ONCE PRN 03/02/21 [History Last Taken Unknown] acetylcysteine 600 mg capsule 600 mg PO DAILY 03/02/21 [History Last Taken Unknown] albuterol sulfate 90 mcg/actuation aerosol inhaler 2 puff INHALATION Q6H PRN #8.5 g 03/02/21 [Rx Last Taken Unknown] aripiprazole 400 mg intramuscular suspension,extended release 400 mg IM QMONTH 03/02/21 [History Last Taken Unknown] cholecalciferol (vitamin D3) 50 mcg (2,000 unit) capsule 50 mcg PO DAILY 03/02/21 [History Last Taken Unknown] clonidine HCl 0.1 mg tablet 0.1 mg PO TID 03/02/21 [History Last Taken Unknown] hydroxyzine HCl 25 mg tablet 50 mg PO QHS PRN tab 03/02/21 [History Last Taken Unknown] loratadine 10 mg tablet 10 mg PO DAILY 03/02/21 [History Last Taken Unknown] loratadine 10 mg tablet 10 mg PO DAILY PRN #90 tab 03/02/21 [Rx Last Taken Unknown] nicotine (polacrilex) 2 mg gum 2 mg BUCCAL Q2H #396 ea 03/02/21 [Rx Last Taken Unknown] nicotine 14 mg/24 hr daily transdermal patch 1 patch TRANSDERMAL Q24H #28 ea 03/02/21 [Rx Last Taken Unknown] omeprazole 20 mg capsule,delayed release 20 mg PO DAILY 03/02/21 [History Last Taken Unknown] quetiapine 400 mg tablet 400 mg PO BID 03/02/21 [History Last Taken Unknown] Allergy/AdvReac Type Severity Reaction Status Date / Time diphenhydramine Allergy Swelling Verified 10/03/21 10:47 [From Benadryl] Penicillins Allergy Unknown Verified 10/03/21 10:47 codeine AdvReac Other Verified 10/03/21 10:47 risperidone [From Risperdal] AdvReac Other Verified 10/03/21 10:47 Family History Other Family history not known due to adoption Social History Smoking Status: Current every day smoker tobacco type: cigarettes alcohol intake: never substance use type: does not use what type of physical activity do you participate in: none ROS ROS ED Constitutional Constitutional ED: Denies chills or fever(s) Eyes Eyes: Denies blurry vision or change in vision ENT ENT ED: Denies rhinorrhea or sore throat Cardiovascular Cardiovascular: Denies chest pain or palpitations Respiratory/Chest Respiratory/Chest: Denies cough or dyspnea Gastrointestinal Gastrointestinal: Denies nausea or vomiting Genitourinary Genitourinary ED: Denies dysuria or hematuria Musculoskeletal Musculoskeletal: Denies back pain or neck pain Integumentary Denies abscess or rash Neurologic Neurologic: Reports headache(s); Denies weakness Allergic/Immunologic Allergic/Immunologic ED: Denies mouth swelling or urticaria EXAM Physical Exam Const Vital Signs: 10/03/21 10:42 Temperature 97.1 F L Temperature Source Temporal Pulse Rate 103 H Respiratory Rate 16 Blood Pressure 129/49 H Blood Pressure Mean 75 Pulse Ox 99 Oxygen Delivery Method Room Air Positive well nourished and well developed General Appearance ED: well developed and NAD HEENT Reports moist mucous membranes Neck full ROM Extremity Extremity Narrative: There is some edema and mild tenderness over the proximal phalanx of the left ring finger. There are [address] Capillary refill is less than 2 seconds in all digits. Sensation was intact to light touch in all digits. There is full range of motion of the MP, PIP, and DIP joints of the left ring finger. Strength is 5/5 in flexion extension of the MP, PIP, and DIP joints of the left ring finger. Neuro oriented x3, CN's II-XII intact bilaterally, moves all extremities, no focal motor deficits and no sensory deficits noted Sensorium / Orientation: alert Psych mental status grossly normal MDM MDM MDM Narrative Medical decision making narrative: The rings were cut off without difficulty. Patient felt better after this. During the nursing triage, patient told the nurse that she was having thoughts of suicide and hurting herself. Patient told the nurse that she wanted to hit herself in the head with a hammer. Because of this, crisis was called to evaluate the patient. They feel that the patient is safe to be discharged. I am agreeable with this. Staff was instructed to monitor the patient. Patient and staff understood and were agreeable with the plan. All questions were answered. Discharge Plan Triage Chief Complaint: Other, Pain/Inj ED Provider: Juan Diego Lucero Dx/Rx/DC Orders Clinical Impression: Tight ring on finger, Depression Instructions: Depression: Tips to Help Yourself Prescriptions: No Action acetaminophen [Tylenol] 325 mg tablet 325 mg PO ONCE PRNRF: 0 acetylcysteine 600 mg capsule 600 mg PO DAILY RF: 0 clonidine HCl 0.1 mg tablet 0.1 mg PO TID RF: 0 loratadine 10 mg tablet 10 mg PO DAILY RF: 0 omeprazole 20 mg capsule,delayed release(DR/EC) 20 mg PO DAILY RF: 0 cholecalciferol (vitamin D3) 50 mcg (2,000 unit) capsule 50 mcg PO DAILY RF: 0 Abilify Maintena 400 mg suspension,extended rel recon 400 mg IM QMONTH RF: 0 hydroxyzine HCl 25 mg tablet 50 mg PO QHS PRNRF: 0 quetiapine 400 mg tablet 400 mg PO BID RF: 0 nicotine 14 mg/24 hr patch 24 hour 1 patch transdermal Q24H Qty: 28 RF: 2 nicotine (polacrilex) 2 mg gum 2 mg buccal Q2H Qty: 396 RF: 1 albuterol sulfate [Ventolin HFA] 90 mcg/actuation HFA aerosol inhaler 2 puff inhalation Q6H PRN (Reason: shortness of breath or wheezing) Qty: 8.5 RF: 3 loratadine [Claritin] 10 mg tablet 10 mg PO DAILY PRN (Reason: allergy symptoms) Qty: 90 RF: 3 ibuprofen 600 MG tablet 600 mg PO Q6H PRN PRN (Reason: Pain Or Fever) RF: 0 trazodone 50 MG tablet 100 mg PO QHS RF: 0 Primary Care Provider: Dora Sharma Referrals: Dora Sharma MD [Primary Care Provider] - 3-5 Days Disposition Disposition: Home, Self Care
--- NOTE | 2021-10-03 11:30 | ED.RN ---
Another home health care worker, not present at admission, of Darcy's pulls this nurse aside to go over details in Darcys past that may affect decision making process. She states she has record and copies of all the notes take in the past couple months regarding Juan Carlos behavior. Another home health care worker provides these notes and copies are placed in chart.
--- NOTE | 2021-10-03 11:51 | ED.RN ---
1150; spoke with patient's legal guardian Marcial who gave verbal consent. She gives consent as well for counseling center to evaluate patient. Gives history of patient having 7 mental health admissions in previous 2 years. Darcy took some time to cooperate with staff regarding need for evaluation by crisis stating I just want to go home and I should have never said anything.
[2021-10-03 12:00] VITALS: RESP 18
--- NOTE | 2021-10-03 12:30 | ED.RN ---
Due to vague thoughts of previous suicidal ideations and not being descriptive in nature, patient placed in suicidal precautions with sitter assigned. Will have counselor evaluate for further treatment needed.
--- NOTE | 2021-10-03 12:34 | ED.RN ---
Darcy continues to deny current thoughts of harming herself. She continues to state to this nurse that she is frustrated with her care givers, she does not have access to be able to call her sisters. Due to the vague description of suicidal thoughts, jesus remains at bedside until crisis evaluation.
[2021-10-03 13:00] VITALS: RESP 18
--- NOTE | 2021-10-03 13:31 | ED.RN ---
Spoke with Aida, from Crisis, updated her of the previous admissions in past 2 years, also told her that Miri would like her evaluated but is unsure if Darcy is stating the truth and is out of state. Also updated her on the documents provided with details of Juan Carlos aggressive, agitated behavior since her last psychiatric admission.
--- NOTE | 2021-10-03 13:34 | ED.RN ---
Aida from Crisis on the phone at this time to speak with Darcy. Mine continues to be at bedside.
[2021-10-03 14:00] VITALS: RESP 18
--- NOTE | 2021-10-03 14:21 | ED.RN ---
Spoke with Aida from Crisis. In agreeance that Darcy is having difficulty expressing her frustration and increased stress with staff. She has miscommunication and get triggered and overwhelmed easily. D/C after guardian, Miri, speaks with care staff at home. No safety plan necessary. Spoke with Miri, she will contact care staff, hesistent to approve discharge at this time. Connected Miri with Aida regarding care at home and whether Darcy will be safe for discharge. Dr Lucero updated.
[2021-10-03 15:00] VITALS: BP 120/79; PULSE 105; RESP 18; TEMP 36.3; O2SAT 99
--- NOTE | 2021-10-03 15:12 | ED.RN ---
Aida from crisis called and had spoken to the guardian that wants pt placed. Aida doesnt feel like pt needs inpatient hospitalization as well as Dr Lucero. Dr Lucero agreed that he doesnt feel like pt needs the inpatient at this time. Aida suggested that if family feels like she needs more and would like her at [facility] that they could take her there to be seen. Crisis is doing her notes and will fax to us. Patient will be discharged with her caregivers. Primary nurse is also aware
--- NOTE | 2021-10-03 15:45 | ED.RN ---
Spoke with Darcy at length at bedside, she continues to deny thoughts of self harm, acknowledges that she has had previous attempts. She states she just wants to be able to talk to her sisters, to have access to a phone. She tells this nurse that she gets frustrated and does not know how to control her frustration. She continues to deny thoughts of harming herself or others at this time.
--- NOTE | 2021-10-03 15:47 | ED.RN ---
Spoke with caregivers prior to discharging Darcy. The concern was made that we'll just bring her back and also what do we do when 3 hours from now she becomes aggressive or agitated towards us. They stated that she has made many previous comments of harming herself, sees a psychiatrist, and becomes agitated easily after speaking with staff. Of note, on speaking with Miri previously this shift, she made mention that Darcy does not control her aggression easily. I stated that Darcy has continuously denied current thoughts of self harm, and at present she denies thoughts of harming others. I stated, with Darcy present, that she has not shown any aggression, agitation during her stay and that she was brought to the ED for ring removal and we placed her into suicidal precautions for the vague prior ideations, did not have a plan of suicide. Unless she were a threat to herself or others this would result in mental evaluation again. She has been evaluated by crisis, Dr. Lucero, and myself and I relayed the information from crisis that if in the event they wanted further psychiatric evaluation they could bypass and take her straight to [facility] where she has been treated.
[2021-10-03 15:55] VITALS: RESP 18
--- NOTE | 2021-10-03 16:15 | ED.RN ---
Aunflavio called and upset about pt being discharged. Aunflavio states that she was not told about pt leaving and that Aida from crisis had told her that the pt needed placed. I tried to explain to the aunt that Aida from crisis and Dr Lucero both agreed that pt did not need inpatient. Aunflavio (Ly?) said that we should have called her (Keri spoke with her several times as well as crisis) before we made the decision to discharge. then hung up on this nurse. called back and asked for this nurse to then say that she was told that Keri told the caregivers to never bring pt back again. She also said that Keri said that we cant take care of her here. This nurse spoke with Keri who stated that she told them what crisis told us to tell her about taking her to [facility] if they felt like they needed to. Keri did not say that the pt could not come back or that we could not take care of her. was given the pt advocate number as she wanted to tell us that she was filing a complaint about the care that pt was given. also stated that she would start with the hospital but would go further if needed in the complaint. Sara Pascual Director of the Emergency Room is aware as well as Aida from crisis. Aida was also going to contact her color making supervisor. Fence Erector will also be notified.
== END 2021-10-03 17:05 | disposition home or self-care (01) ==
PROVIDERS: Emergency Provider Emergency Medicine; PCP Internal Medicine; Visit Provider Emergency Medicine
DX: S60.445A External constriction of left ring finger, initial encounter (principal); W49.04XA Ring or other jewelry causing external constriction, initial encounter; Y93.9 Activity, unspecified; Y92.9 Unspecified place or not applicable; F32.A Depression, unspecified; Z79.899 Other long term (current) drug therapy; R45.851 Suicidal ideations; F17.210 Nicotine dependence, cigarettes, uncomplicated; J45.909 Unspecified asthma, uncomplicated; K21.9 Gastro-esophageal reflux disease without esophagitis; E55.9 Vitamin D deficiency, unspecified; Z91.51 Personal history of suicidal behavior
CPT/HCPCS: 99284